=== PATIENT | female | born 1990 | race Caucasian/White ===

== ENCOUNTER 2016-07-30 09:14 | Emergency (ER) | payer OTHER ==
[2016-07-30 09:19] VITALS: TEMP 98.3; BMI 24.4
--- NOTE | 2016-07-30 09:31 | PDOC ---
History of Present Illness - General History Source: Patient Exam Limitations: No Limitations - History of Present Illness Initial Comments: 07/30/16 09:41 The patient is a 26-year-old woman A, currently approximately 7 weeks ), with a past medical history of asthma who presents to the emergency department via walk-in for further evaluation of vaginal spotting for the past week. She states that for the past week, she has been noting some mild vaginal spotting when wiping with associated abdominal cramping and chills. She states that she has been using panty liners and does not soak them. This morning, her abdominal cramping worsened and she noted thick blood and a small clot. She denies history of STDs. She states that her PAP smears have always been normal. Her last menstrual period was on 06/06. She expresses concern as she has had a lot of stress at work, and wonders if her stress might have caused her to bleed. She denies fever, generalized weakness. She denies cough, shortness of breath. She denies any urinary complaints. Allergies: No Known Drug Allergies Past Surgical History: None reported Social History: No tobacco, ETOH and recreational drug use. Pathology Manager: N/A <Natalie Ingram - Last Filed: 07/30/16 12:58> <Fortino Gtz - Last Filed: 07/30/16 13:35> - General Chief Complaint: Vaginal Sxs Stated Complaint: VAGINAL BLEEDING Time Seen by Provider: 07/30/16 09:26 Past History <Natalie Ingram - Last Filed: 07/30/16 12:58> - Past Medical History Asthma: Yes Cancer: No Cardiac Disorders: No Diabetes: No HTN: No Seizures: No Thyroid Disease: No - Reproductive History (#): 3 Para: 1 Spontaneous : 1 - Psycho/Social/Smoking Cessation Hx Anxiety: No Suicidal Ideation: No Smoking History: Never smoked Have you smoked in the past 12 months: No Hx Alcohol Use: No Drug/Substance Use Hx: No Substance Use Type: None Hx Substance Use Treatment: No <Fortino Gtz - Last Filed: 07/30/16 13:35> - Past Medical History Allergies/Adverse Reactions: Allergies Allergy/AdvReac Type Severity Reaction Status Date / Time No Known Allergies Allergy Verified 07/30/16 09:21 Review of Systems - Review of Systems Constitutional: Yes: Chills. No: Fever Respiratory: No: Cough, Shortness of Breath Cardiac (ROS): No: Chest Pain ABD/GI: Yes: Nausea. No: Constipated, Diarrhea : Yes: See HPI. No: Dysuria, Frequency All Other Systems: Reviewed and Negative <Fortino Gtz - Last Filed: 07/30/16 13:35> *Physical Exam - Vital Signs Last Vital Signs Temp Pulse Resp BP Pulse Ox 98.3 F 89 18 99/58 100 07/30/16 09:16 07/30/16 09:16 07/30/16 09:16 07/30/16 09:16 07/30/16 09:16 - Physical Exam Comments: 07/30/16 09:40 GENERAL: The patient is awake, alert, and fully oriented, in no acute distress. HEAD: Normal with no signs of trauma. EYES: Pupils equal, round and reactive to light, extraocular movements intact, sclera anicteric, conjunctiva clear with no pallor. ENT: Ears normal, nares patent, oropharynx clear without exudates. Moist mucous membranes. NECK: Normal range of motion, supple without lymphadenopathy, JVD, or masses. LUNGS: Breath sounds equal, clear to auscultation bilaterally. No wheeze/ crackles. HEART: Regular rate and rhythm, normal S1 and S2 without murmur or rub. ABDOMEN: Soft. There is some suprapubic discomfort without focal guarding or rebound. Nondistended. BS wnl. No palpable masses. No hepatosplenomegaly. EXTREMITIES: Normal range of motion, no edema. No clubbing or cyanosis. No cords, erythema, or tenderness. NEUROLOGICAL: Cranial nerves II through XII grossly intact. Normal speech, normal gait. PSYCH: Normal mood, normal affect. SKIN: Warm, Dry, normal turgor, no rashes or lesions noted. PELVIC: Os is close. Very scant fluid in the vault. <Natalie Ingram - Last Filed: 07/30/16 12:58> - Vital Signs Last Vital Signs Temp Pulse Resp BP Pulse Ox 98.3 F 89 18 99/58 100 07/30/16 09:16 07/30/16 09:16 07/30/16 09:16 07/30/16 09:16 07/30/16 09:16 <Fortino Gtz - Last Filed: 07/30/16 13:35> ED Treatment Course - LABORATORY CBC & Chemistry Diagram: 07/30/16 09:30 - RADIOLOGY Radiograph Interpretation: 07/30/16 12:58 EXAM: US/TRANSVAGINAL US PREG US/PELVIC / BLADDER US P IMPRESSION: Ultrasound of the pelvis is performed with transabdominal and transvaginal technique including pelvic duplex: Transabdominal exam: The uterus measures 9.6 x 6.4 x 7.3 cm. Transvaginal exam: There is a single live intrauterine gestation with crown-rump length measurement consistent with 6 week 1 day gestation. cardiac activity is detected at 105 bpm. Yolk sac is identified. There is no significant free fluid in the cul-de-sac. The right ovary measures 2.9 x 1.8 x 1.9 cm and the left ovary measures 2.9 x 1.9 x 1.9 cm. Pelvic duplex: Normal arterial flow seen to the ovaries bilaterally. <Natalie Ingram - Last Filed: 07/30/16 12:58> - LABORATORY CBC & Chemistry Diagram: 07/30/16 09:30 - RADIOLOGY Radiology Studies Ordered: Category Date Time Status TRANSVAGINAL US PREG [US] Stat Ultrasound 07/30/16 09:31 Ordered <Fortino Gtz - Last Filed: 07/30/16 13:35> Medical Decision Making - Medical Decision Making 07/30/16 09:51 A portion of this note was documented by scribe services under my direction. I have reviewed the details of the note, within reason, and agree with the documentation with the following case summary and management plan written by me. 26-year-old female LMP 3/3 presents with light vaginal spotting and mild cramping for one week, increased today. No passage of large tissue or clot, no urinary complaints, no infectious complaints. No history of STI or HAT TRIMMER procedures, had 2 previously uncomplicated pregnancies with vaginal deliveries. Vital signs normal. Exam as noted with benign abdomen, closed os, scant blood in vault First trimester bleeding in a healthy 26-year-old female, threatened miscarriage versus rule out ectopic. Labs, UA Type and screen Transvaginal ultrasound Reassess 07/30/16 13:08 Labs are within normal limits, hCG 67,000, ultrasound confirms single live IUP with heart rate of 105. Rh+. No further bleeding, but complaining of mild persistent headache despite Tylenol and IV fluids. Will trial Reglan, then discharge. She has follow-up with an OB that takes her insurance <Fortino Gtz - Last Filed: 07/30/16 13:35> *DC/Admit/Observation/Transfer - Attestations Scribe Attestion: 07/30/16 09:40 Documentation prepared by Natalie Ingram, acting as medical chemist for Fortino Gtz MD. <Natalie Ingram - Last Filed: 07/30/16 12:58> <Fortino Gtz - Last Filed: 07/30/16 13:35> Diagnosis at time of Disposition: Vaginal bleeding in Qualifiers: Trimester: first trimester Qualified Code(s): O46.91 - Antepartum hemorrhage, unspecified, first trimester - Discharge Dispostion Disposition: HOME Condition at time of disposition: Stable - Referrals Referrals: Helen Hill MD [Primary Care Provider] - - Patient Instructions Printed Discharge Instructions: DI for Threatened Additional Instructions: Activity as tolerated. Stay hydrated. Tylenol 1000 mg every 8 hours as needed for pain. Blood tests and an ultrasound confirm a live in the uterus. Monitor the bleeding, it may persist or get adjunct faculty for medical terminology, but should not get significantly heavier. You should follow up with your primary doctor and [facility] as soon as possible regarding today's emergency department visit. Return to the emergency department for any new or concerning symptoms, particularly persistent or worsening bleeding, worsening cramps, fevers or chills or abdominal pain.
[2016-07-30] MEDS ORDERED: ACETAMINOPHEN 500 MG TABLET (FP) PO ONE (09:43)
[2016-07-30] MEDS ORDERED: ACETAMINOPHEN 325 MG TABLET (FP) ONE (09:44)
[2016-07-30 10:06] LABS: BASOPHIL 0.4 % (0-2.0); EOSINOPHIL 0.8 % (0-4.5); MCH 30.9 pg (25.7-33.7); MCHC 33.3 g/dl (32.0-36.0); MEAN CELL VOLUME 92.9 fl (80-96); MEAN PLT VOLUME 8.3 fl (7.5-11.1); NEUTROPHILS 73.2 % (42.8-82.8); PLATELET COUNT 243 K/MM3 (134-434); RDW 13.4 % (11.6-15.6); WHITE BLOOD COUNT 7.5 K/mm3 (4.0-10.0)
[2016-07-30 10:26] LABS: INR 1.06 (0.82-1.09); PROTHROMBIN TIME (PATIENT) 11.7 SEC (9.98-11.88)
[2016-07-30 10:46] LABS: URINE APPEARANCE CLEAR; URINE BILIRUBIN NEGATIVE (NEGATIVE); URINE COLOR YELLOW; URINE GLUCOSE (UA) NEGATIVE (NEGATIVE); URINE KETONE NEGATIVE (NEGATIVE); URINE LEUK ESTERASE NEGATIVE (NEGATIVE); URINE NITRITE NEGATIVE (NEGATIVE); URINE PROTEIN NEGATIVE (NEGATIVE); URINE UROBILINOGEN NEGATIVE E.U./dl (0.2-1.0)
[2016-07-30 10:47] LABS: URINE BLOOD 1+ (NEGATIVE)
[2016-07-30 11:07] LABS: URINE MUCUS RARE; URINE WBC <1 /hpf (3-5)
[2016-07-30] MEDS ORDERED: SODIUM CHLORIDE 1,000 ML IV ONE (11:26)
[2016-07-30] MEDS ORDERED: METOCLOPRAMIDE HCL INJECTION 10 MG/2 ML VIAL IVPB ONE (13:13)
[2016-07-30] MEDS ORDERED: METOCLOPRAMIDE HCL INJECTION 10 MG/2 ML VIAL ONE (13:22)
[2016-07-30 14:10] VITALS: BP 122/57; PULSE 85
== END 2016-07-30 14:08 | disposition home or self-care (01) ==
LOC: JER 09:14
PROC: 3E033GC Introduction of Other Therapeutic Substance into Peripheral Vein, Percutaneous Approach (ICD-10-PCS; principal; 2016-07-30)
PROC: 3E0337Z Introduction of Electrolytic and Water Balance Substance into Peripheral Vein, Percutaneous Approach (ICD-10-PCS; 2016-07-30)
DX: O26.891 Other specified pregnancy related conditions, first trimester (principal); O46.91 Antepartum hemorrhage, unspecified, first trimester; Z3A.01 Less than 8 weeks gestation of pregnancy; J45.909 Unspecified asthma, uncomplicated
CPT/HCPCS: 36415; 76817-TC; 76856-TC; 81003; 81015; 84702; 84703; 85025; 85610; 86850; 86900; 86901; 96361; 96374; 99283-25

== ENCOUNTER 2017-02-16 09:22 | Emergency (ER) | payer OTHER ==
[2017-02-16 09:29] VITALS: BP 110/69; PULSE 81; TEMP 99; BMI 23.1
--- NOTE | 2017-02-16 10:27 | PDOC ---
Attending Attestation - Resident Resident Name: Azael Mota - HPI HPI: 02/16/17 10:39 Pt presents to the ED requesting refill of her albuterol prescription. States that she had an asthma attack last night that resolved after home albuterol, but that she is now out of her home MDI. Denies current complaints. - Physicial Exam PE: 02/16/17 10:40 Agree with resident exam. Lungs are clear, with good air entry. Patient is speaking in complete sentences without respiratory distress. REfused peak flow. - Medical Decision Making 02/16/17 10:41 Patient presents to the ED requesting refill of her albuterol MDI. Denies current complaints. Will discharge home with refill of MDI and referral to primary care.
--- NOTE | 2017-02-16 10:37 | PDOC ---
History of Present Illness - General Chief Complaint: Respiratory Stated Complaint: "I HAVE BEEN WHEEZING SINCE LAST NIGHT" Time Seen by Provider: 02/16/17 10:10 Past History - Past Medical History Allergies/Adverse Reactions: Allergies Allergy/AdvReac Type Severity Reaction Status Date / Time latex Allergy Rash Verified 02/16/17 09:24 Home Medications: Ambulatory Orders Albuterol 0.083% Nebulizer Chloe [Ventolin 0.083%] 1 neb NEB QID PRN 02/16/17 Albuterol Sulfate Inhaler - [Ventolin HFA Inhaler -] 1 puff IH QID PRN #1 inhaler 02/16/17 Albuterol Sulfate Inhaler - [Ventolin Hfa Inhaler -] 1 - 2 inh PO QID PRN Asthma: Yes Cancer: No Cardiac Disorders: No COPD: No Diabetes: No HTN: No Seizures: No Thyroid Disease: No - Reproductive History (#): 3 Para: 1 Spontaneous : 1 - Suicide/Smoking/Psychosocial Hx Smoking History: Never smoked Have you smoked in the past 12 months: No Information on smoking cessation initiated: No Hx Alcohol Use: (occasional) Drug/Substance Use Hx: No Substance Use Type: None Hx Substance Use Treatment: No *Physical Exam - Vital Signs Last Vital Signs Temp Pulse Resp BP Pulse Ox 99 F 81 18 110/69 100 02/16/17 09:22 02/16/17 09:22 02/16/17 09:22 02/16/17 09:22 02/16/17 09:22 *DC/Admit/Observation/Transfer Diagnosis at time of Disposition: Asthma attack Qualifiers: Asthma severity: mild Asthma persistence: intermittent Qualified Code(s): J45.21 - Mild intermittent asthma with (acute) exacerbation - Discharge Dispostion Disposition: HOME Condition at time of disposition: Stable Admit: No - Prescriptions Prescriptions: Albuterol Sulfate Inhaler - [Ventolin HFA Inhaler -] 1 puff IH QID PRN #1 inhaler PRN Reason: Asthma - Referrals - Patient Instructions Printed Discharge Instructions: DI for Asthma -- Adult Additional Instructions: Please return to the ED if you have any new or worsening symtpoms or concerns. Please take albuterol inhaler as needed and follow up with your primary care physician as needed. - Post Discharge Activity Forms/Work/School Notes: Back to Work - Attestations Physician Attestion: 02/16/17 10:36 I attest to the information provided in this note.
== END 2017-02-16 10:45 | disposition home or self-care (01) ==
LOC: FER 09:22
DX: J45.21 Mild intermittent asthma with (acute) exacerbation (principal)
CPT/HCPCS: 99283-25

== ENCOUNTER 2017-04-28 10:15 | Emergency (ER) | payer OTHER ==
[2017-04-28 10:24] VITALS: BP 104/68; PULSE 98; TEMP 98.9; BMI 23.6
--- NOTE | 2017-04-28 10:41 | PDOC ---
History of Present Illness <Fortino Gtz - Last Filed: 04/28/17 10:56> - General History Source: Patient Exam Limitations: No Limitations - History of Present Illness Initial Comments: 04/28/17 10:35 The patient is a 27F with a PMH of asthma who presents to the ER with complaints of flu-like symptoms. The patient has had fevers, chills, sore throat , cough, headache, and myalgias for 2 days. She says no one else around her has been sick but she works at [employer] and may have been exposed to people with the flu. She denies any symptoms of asthma, dysuria, abdominal pain, CP. <Ivan Hou - Last Filed: 04/28/17 11:29> - General Chief Complaint: Respiratory Stated Complaint: COUGH & COLD SX Time Seen by Provider: 04/28/17 10:23 Past History <Fortino Gtz - Last Filed: 04/28/17 10:56> - Past Medical History Asthma: Yes Cancer: No Cardiac Disorders: No COPD: No Diabetes: No HTN: No Seizures: No Thyroid Disease: No - Reproductive History (#): 3 Para: 1 Spontaneous : 1 - Suicide/Smoking/Psychosocial Hx Smoking History: Never smoked Have you smoked in the past 12 months: No Hx Alcohol Use: (social) Drug/Substance Use Hx: No Substance Use Type: None Hx Substance Use Treatment: No <Ivan Hou - Last Filed: 04/28/17 11:29> - Past Medical History Allergies/Adverse Reactions: Allergies Allergy/AdvReac Type Severity Reaction Status Date / Time latex Allergy Rash Verified 04/28/17 10:21 Home Medications: Ambulatory Orders Albuterol Sulfate Inhaler - [Ventolin HFA Inhaler -] 1 puff IH QID PRN #1 inhaler 02/16/17 Oseltamivir Phosphate [Tamiflu -] 75 mg PO BID #10 capsule 04/28/17 Review of Systems - Review of Systems Able to Perform ROS?: Yes Comments:: 04/28/17 10:39 GENERAL/CONSTITUTIONAL: Positive for fever or chills. No weakness. HEAD, EYES, EARS, NOSE AND THROAT: No change in vision. No ear pain or discharge. No sore throat. CARDIOVASCULAR: No chest pain, palpitations, or lightheadedness. RESPIRATORY: Positive for cough. No wheezing, shortness of breath, or hemoptysis. GASTROINTESTINAL: No nausea, vomiting, diarrhea, constipation, or abdominal pain. GENITOURINARY: No dysuria, frequency, hematuria, or change in urination. MUSCULOSKELETAL: Positive for myalgias. No neck or back pain. SKIN: No rash or lesions. NEUROLOGIC: Positive for headache. No numbness, tingling, weakness, loss of consciousness, or change in strength/sensation. ENDOCRINE: No increased thirst. No abnormal weight change. HEMATOLOGIC/LYMPHATIC: No anemia, easy bleeding, or history of blood clots. ALLERGIC/IMMUNOLOGIC: No hives or skin allergy. Is the patient limited Gambian proficient: No <Ivan Hou - Last Filed: 04/28/17 11:29> *Physical Exam - Vital Signs Last Vital Signs Temp Pulse Resp BP Pulse Ox 98.9 F 98 H 20 104/68 98 04/28/17 10:15 04/28/17 10:15 04/28/17 10:15 04/28/17 10:15 04/28/17 10:15 <Fortino Gtz - Last Filed: 04/28/17 10:56> - Vital Signs Last Vital Signs Temp Pulse Resp BP Pulse Ox 98.9 F 98 H 20 104/68 98 04/28/17 10:15 04/28/17 10:15 04/28/17 10:15 04/28/17 10:15 04/28/17 10:15 - Physical Exam Comments: 04/28/17 11:28 GENERAL: Well developed, well nourished. Awake and alert. No acute distress. HEENT: Normocephalic, atraumatic. Hearing grossly normal. Moist mucous membranes. PERRLA, EOMI. No conjunctival pallor. Sclera are non-icteric. Tonsillar swelling, no exudates, nonerythematous. NECK: Supple. Full ROM. No JVD. No lymphadenopathy. CARDIOVASCULAR: Regular rate and rhythm. No murmurs, rubs, or gallops. PULMONARY: No evidence of respiratory distress. Lungs clear to auscultation bilaterally. No wheezing, rales or rhonchi. ABDOMINAL: Soft. Non-tender. Non-distended. No rebound or guarding. GENITOURINARY: No CVA tenderness bilaterally. MUSCULOSKELETAL: Normal range of motion at all joints. No bony deformities or tenderness. EXTREMITIES: No cyanosis. No clubbing. No edema. No calf tenderness. SKIN: Warm and dry. Normal capillary refill. No rashes. No jaundice. NEUROLOGICAL: Alert, awake, appropriate. Cranial nerves 2-12 intact. Normal speech. Gait is normal without ataxia. PSYCHIATRIC: Cooperative. Good eye contact. Appropriate mood and affect. <Ivan Hou - Last Filed: 04/28/17 11:29> Medical Decision Making - Medical Decision Making 04/28/17 10:44 The patient is a 27F with a PMH of asthma who is presenting with flu-like symptoms x 2 days. Will check u-preg and send tamiflu to her pharmacy. <Ivan Hou - Last Filed: 04/28/17 11:29> *DC/Admit/Observation/Transfer <Fortino Gtz - Last Filed: 04/28/17 10:56> - Discharge Dispostion Admit: No <Ivan Hou - Last Filed: 04/28/17 11:29> Diagnosis at time of Disposition: Influenza - Discharge Dispostion Disposition: HOME Condition at time of disposition: Stable - Prescriptions Prescriptions: Oseltamivir Phosphate [Tamiflu -] 75 mg PO BID #10 capsule - Patient Instructions Printed Discharge Instructions: Influenza (Alternative Therapy) Additional Instructions: Please return to the ER if symptoms persist, worsen, or new symptoms arise, especially increased shortness of breath or wheezing. Your symptoms are consistent with influenza. Take Tamiflu as prescribed to help reduce the symptoms. Take tylenol and/or motrin as needed for fever/aches, continue to use your inhaler as needed for cough/wheezing. Please follow up with your primary care physician in 2-3 days. Please return to the ER if you have any signs or symptoms of chest pain, shortness of breath, uncontrollable fever, chills, nausea, vomiting, numbness, tingling, or weakness in any part of your body, changes in vision, or slurred speech. Print Language: LIBERIAN - Post Discharge Activity Forms/Work/School Notes: Back to Work
--- NOTE | 2017-04-28 11:01 | PDOC ---
Attending Attestation - Resident Resident Name: IsaideeapeddieIvan - ED Attending Attestation I have performed the following: I have examined & evaluated the patient, The case was reviewed & discussed with the resident, I agree w/resident's findings & plan, Exceptions are as noted - HPI HPI: 04/28/17 10:58 27-year-old female with history of mild intermittent asthma presents with URI symptoms for 2 days, fever and chills and myalgia. Used inhaler several times for wheezing movement, no persistent shortness of breath or chest congestion. 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 No other travel. - Physicial Exam PE: 04/28/17 10:58 afebrile, O2 sat normal. Well-appearing, ambulating independently and speaking full sentences, smiling and joking with staff No stridor, oropharynx clear Lungs are clear without wheezing or focally decreased breath sounds Heart is regular, abdomen benign - Medical Decision Making 04/28/17 10:59 Patient seen and evaluated with the resident. I agree with the overall evaluation, assessment, and management with the following summary of visit: Healthy 27-year-old female with URI symptoms and fevers for 2 days, works in healthcare facility. Clinically consistent with influenza given the current propellants, will treat empirically with Tamiflu. No persistent asthma exacerbation and her respiratory status is normal, return precautions discussed. Urine sent No indication for emergent imaging Tamiflu prescription, PMD follow-up
== END 2017-04-28 11:00 | disposition home or self-care (01) ==
LOC: FER 10:15
DX: J11.1 Influenza due to unidentified influenza virus with other respiratory manifestations (principal); J45.909 Unspecified asthma, uncomplicated
CPT/HCPCS: 84703; 99282-25

== ENCOUNTER 2018-02-27 10:37 | Emergency (ER) | payer OTHER ==
--- NOTE | 2018-02-27 10:51 | PDOC ---
History of Present Illness - General Stated Complaint: FLU Time Seen by Provider: 02/27/18 10:50 History Source: Patient - History of Present Illness Initial Comments: 02/27/18 11:49 The patient is a 27 year old female 34 weeks pregnent with no significant PMH that ptesented today complaining of flu like symptoms ( muscle pain, sore throat , cough, fever) that started 4 days ago. She visited urgent care clinic yesterday and was told that she is positive for influenza. Her OBGYN was consulted and no Tamiflu was recommended. She was given cough syrup and Tylenol. She is complaining of fatigue, denies eating or drinking since yesterday. She also hasn't noticed movements today. Severity: moderate Past History - Past Medical History Allergies/Adverse Reactions: Allergies Allergy/AdvReac Type Severity Reaction Status Date / Time latex Allergy Rash Verified 02/27/18 11:01 Home Medications: Ambulatory Orders Multivitamins [Tab-A-Vit -] 1 tab PO DAILY 02/27/18 Asthma: Yes Cancer: No Cardiac Disorders: No COPD: No Diabetes: No HTN: No Seizures: No Thyroid Disease: No - Reproductive History (#): 3 Para: 1 Spontaneous : 1 - Suicide/Smoking/Psychosocial Hx Smoking History: Never smoked Have you smoked in the past 12 months: No Hx Alcohol Use: (social) Drug/Substance Use Hx: No Substance Use Type: None Hx Substance Use Treatment: No Review of Systems - Review of Systems Able to Perform ROS?: Yes Is the patient limited Ecuadorean proficient: Yes Constitutional: Yes: See HPI HEENTM: Yes: Symptoms Reported, See HPI Respiratory: Yes: Symptoms reported, Cough *Physical Exam - Physical Exam General Appearance: Yes: Nourished, Appropriately Dressed HEENT: positive: EOMI (rhales on right side), LORIE Respiratory/Chest: positive: Rales, Rhonchi Cardiovascular: positive: Regular Rhythm, Regular Rate, S1, S2 Gastrointestinal/Abdominal: positive: Normal Bowel Sounds, Other (gravid uterus) Neurologic: positive: Fully Oriented, Alert Medical Decision Making - Medical Decision Making 02/27/18 11:59 The patient had 2 L of NS ordered, Tylenol 1g IV. L&D notified about the patient. *DC/Admit/Observation/Transfer Diagnosis at time of Disposition: , Influenza - Discharge Dispostion Disposition: HOME Condition at time of disposition: Good Decision to Admit order: No - Referrals - Patient Instructions Additional Instructions: You are being discharged from ED. Please go to L&D as soon as possible for evaluation. Take Tylenol 650 mg every 4 hours and come back to Emergency Room if any of your symptoms worsen. Please continue to drink plenty of fluids, - Post Discharge Activity
[2018-02-27] MEDS ORDERED: ACETAMINOPHEN INJECTION 100 ML IVPB ONE (11:36)
--- NOTE | 2018-02-27 11:43 | PDOC ---
Attending Attestation - Resident Resident Name: Yarelis Alatorre - ED Attending Attestation I have performed the following: I have examined & evaluated the patient, The case was reviewed & discussed with the resident, I agree w/resident's findings & plan, Exceptions are as noted - HPI HPI: 02/27/18 11:39 27 year old female c/ hx of ~34 wks , no pmh p/w flu-like symptoms. Pt was having ~5 days of flu-like symptoms. Went to urgent care and diagnosed with influenza with swab. however, given outside window, both urgent care physician and pt's OB, Dr. Peterson (as per pt) stated pt should not start tamiflu. Pt continues to have cough, body aches, chills and flu like symptoms. Today, noted that she was still feeling symptoms and felt the baby kick less, so came into ER. No abdominal pain, dysuria, or vaginal bleeding. - Physicial Exam PE: 02/27/18 11:42 GENERAL: Awake, alert, and fully oriented, in no acute distress HEAD: No signs of trauma EYES: EOMI, sclera anicteric, conjunctiva clear ENT: Auricles normal inspection, hearing grossly normal, nares patent NECK: Normal ROM, supple LUNGS: Breath sounds equal, clear to auscultation bilaterally. No wheezes, and no crackles HEART: Regular rate and rhythm, normal S1 and S2, no murmurs, rubs or gallops ABDOMEN: Soft, nontender, No guarding, no rebound. No masses EXTREMITIES: Normal range of motion, no edema. No clubbing or cyanosis. No cords, erythema, or tenderness NEUROLOGICAL: Cranial nerves II through XII grossly intact. Normal speech, SKIN: Warm, Dry, normal turgor, no rashes or lesions noted. - Medical Decision Making 02/27/18 11:42 Vital Signs Temp Pulse Resp BP Pulse Ox 97.9 F 93 H 16 104/64 98 02/27/18 10:45 02/27/18 10:45 02/27/18 10:45 02/27/18 10:45 02/27/18 10:45 27 year old female presents with influenza. Pt concerned for fetus. Supportive care, tylenol and IVF. Dr. Yi had spoken to L&D. The patient can be sent to L&D for heart monitoring and ultrasound. Pt agrees with plan.
[2018-02-27] MEDS ORDERED: SODIUM CHLORIDE 0.9% 500 ML INFUS.BAG IV ONE (11:45)
[2018-02-27] MEDS ORDERED: ACETAMINOPHEN 1000 MG/100 ML VIAL (NON FORMULARY) IVPB ONE (11:49)
[2018-02-27 13:38] VITALS: BP 119/73; PULSE 88; TEMP 98.1
== END 2018-02-27 14:35 | disposition home or self-care (01) ==
LOC: JER 10:37
PROC: 3E033NZ Introduction of Analgesics, Hypnotics, Sedatives into Peripheral Vein, Percutaneous Approach (ICD-10-PCS; principal; 2018-02-27)
DX: O26.893 Other specified pregnancy related conditions, third trimester (principal); O98.513 Other viral diseases complicating pregnancy, third trimester; B33.8 Other specified viral diseases; J10.1 Influenza due to other identified influenza virus with other respiratory manifestations; Z3A.34 34 weeks gestation of pregnancy
CPT/HCPCS: 96374; 99282-25; J0131

== ENCOUNTER 2018-05-19 17:42 | Emergency (ER) | payer OTHER ==
--- NOTE | 2018-05-19 17:49 | PDOC ---
History of Present Illness - General Chief Complaint: Laceration Stated Complaint: LEFT HAND LACERATION Time Seen by Provider: 05/19/18 17:48 Past History - Past Medical History Allergies/Adverse Reactions: Allergies Allergy/AdvReac Type Severity Reaction Status Date / Time latex Allergy Rash Verified 05/19/18 17:43 Home Medications: Ambulatory Orders Multivitamins [Tab-A-Vit -] 1 tab PO DAILY 02/27/18 Asthma: Yes Cancer: No Cardiac Disorders: No COPD: No CHF: No Diabetes: No HTN: No Seizures: No Thyroid Disease: No - Reproductive History (#): 3 Para: 1 Spontaneous : 1 - Suicide/Smoking/Psychosocial Hx Smoking History: Never smoked Have you smoked in the past 12 months: No Hx Alcohol Use: (social) Drug/Substance Use Hx: No Substance Use Type: None Hx Substance Use Treatment: No
--- NOTE | 2018-05-19 17:51 | PDOC ---
Attending Attestation - Resident Resident Name: Rubi Tyler - ED Attending Attestation I have performed the following: I have examined & evaluated the patient, The case was reviewed & discussed with the resident, I agree w/resident's findings & plan, Exceptions are as noted - HPI HPI: 05/19/18 18:01 Laceration at the base of the left thumb. Appears superficial. Distal sensation is intact. Tendons full function against resistance flexion and extension of the IPJ, MCP J. Apposition is intact and strong. Capillary refill intact and prompt. - Physicial Exam PE: 05/19/18 18:02 Physical exam: Alert and oriented well-developed well-nourished no acute distress cheerful and cooperative Afebrile, vital signs normal Injury confined to the left thumb. 1 cm superficial laceration involving the epidermis and dermis only. No deep structures involved. Tendons intact. Sensation intact to the fingertip. - Medical Decision Making 05/19/18 18:03 Assessment: Superficial laceration of the thumb Plan: Digital block. Clean and irrigate. Further explore. If superficial, close with interrupted 4-0 nylon, immobilize, with wound care follow-up. 05/19/18 18:35 Repair of the skin was performed by the resident, Dr. Tyler. Exploration revealed that the cut was superficial and there were no deep structures involved. Skin edges were nicely approximated with 4-0 nylon. Wound care instructions and follow-up.
[2018-05-19 17:53] VITALS: BP 121/71; PULSE 91; TEMP 98.3; BMI 28.3
--- NOTE | 2018-05-19 17:57 | PDOC ---
History of Present Illness - General Chief Complaint: Laceration Stated Complaint: LEFT HAND LACERATION Time Seen by Provider: 05/19/18 17:48 History Source: Patient Exam Limitations: No Limitations - History of Present Illness Initial Comments: 05/19/18 17:56 28 year old female with no pertinent PMH presented to ED for laceration to left thumb after cutting herself on a mirror accidentally. Pt reported last tetanus x2 years ago. Pt denied numbness, tingling, weakness. Pt stated the mirror did not break and she does not believe any glass is in the wound. Past History - Past Medical History Allergies/Adverse Reactions: Allergies Allergy/AdvReac Type Severity Reaction Status Date / Time latex Allergy Rash Verified 05/19/18 17:43 Home Medications: Ambulatory Orders Multivitamins [Tab-A-Vit -] 1 tab PO DAILY 02/27/18 Asthma: Yes Cancer: No Cardiac Disorders: No COPD: No CHF: No Diabetes: No HTN: No Seizures: No Thyroid Disease: No - Reproductive History (#): 3 Para: 1 Spontaneous : 1 - Immunization History Immunization Up to Date: Yes - Suicide/Smoking/Psychosocial Hx Smoking History: Never smoked Have you smoked in the past 12 months: No Information on smoking cessation initiated: No Hx Alcohol Use: No Drug/Substance Use Hx: No Substance Use Type: None Hx Substance Use Treatment: No Review of Systems - Review of Systems Able to Perform ROS?: Yes Comments:: 05/19/18 17:56 General: denied fever, chills, night sweats, generalized weakness. HEENT: denied sore throat, rhinorrhea, ear pain. Heart: denied chest pain, palpitations, syncope, lower extremity swelling, diaphoresis. Respiratory: denied shortness of breath, cough, sputum production, hemoptysis. Abdomen: denied abdominal pain, nausea, vomiting, diarrhea, constipation, blood in stool. : denied dysuria, increased urinary frequency, hematuria, urinary incontinence , flank pain. Back: denied back pain. Musculoskeletal: denied joint pain, muscle pain, joint swelling. Neurological: denied headache, dizziness, numbness, tingling, weakness. Skin: admitted to laceration. denied rash, abrasion. *Physical Exam - Vital Signs Last Vital Signs Temp Pulse Resp BP Pulse Ox 98.3 F 91 H 20 121/71 100 05/19/18 17:43 05/19/18 17:43 05/19/18 17:43 05/19/18 17:43 05/19/18 17:43 - Physical Exam Comments: 05/19/18 17:57 Constitutional: Well-nourished, Well-developed, appearing stated age. HEENT: head is normocephalic, atraumatic. EOMI. PERRLA. Neck: supple. Full ROM. Heart: regular rhythm. no murmurs, rubs or gallops. Lungs: clear to auscultation bilaterally. no crackles, rhonchi or wheezing. no stridor. Abdomen: soft, nontender. normal bowel sounds. no rebound, guarding, masses. Extremities: full ROM left thumb. left thumb is neurovascularly intact. Peripheral pulses intact. capillary refill intact and strong. Neurological: CN 2-12 grossly intact. Moves all four extremities. Psych: awake, alert, oriented x3. Follows commands. Answers questions appropriately. Skin: 3 cm simple linear laceration to left palmar area just proximal to the thumb. Moderate Sedation - Procedure Monitoring Vital Signs: Procedure Monitoring Vital Signs Temperature 98.3 F 05/19/18 17:43 Pulse Rate 91 H 05/19/18 17:43 Respiratory Rate 20 05/19/18 17:43 Blood Pressure 121/71 05/19/18 17:43 O2 Sat by Pulse Oximetry (%) 100 05/19/18 17:43 Procedures - Laceration/Wound Repair Hand Wound Length: 2.6 to 5.0 cm Wound Explored: clean, no foreign body present Wound's Depth, Shape: superficial Irrigated w/ Saline: Yes Betadine Prep: Yes Anesthesia: 1% Lidocaine Amount of Anesthetic (ccs): 3 Wound Debrided: minimal Wound Repaired With: Sutures Suture Size/Type: 4:0 Number of Sutures: 3 Sterile Dressing Applied: Yes Medical Decision Making - Medical Decision Making 05/19/18 18:34 28 year old female presented to ED for laceration to hand after accidentally cutting herself on a mirror. Last tetanus x2 years ago. Initial Vital Signs Temp Pulse Resp BP Pulse Ox 98.3 F 91 H 20 121/71 100 05/19/18 17:43 05/19/18 17:43 05/19/18 17:43 05/19/18 17:43 05/19/18 17:43 Afebrile. No tachycardia. No tachypnea. No hypotension. No hypoxia on room air. The wound was irrigated with normal saline (1000 cc) under pressure, anesthetized with 1% lidocaine and repaired with 3 sutures. See above procedure note. Pt tolerated the procedure well. Pt continued to be neurovascularly intact. The wound was covered with bacitracin and gauze. Pt informed of return precautions and wound care. Pt informed to follow up in 7-10 days. Pt discharged. *DC/Admit/Observation/Transfer Diagnosis at time of Disposition: Laceration - Discharge Dispostion Disposition: HOME Condition at time of disposition: Improved Decision to Admit order: No - Referrals - Patient Instructions Printed Discharge Instructions: DI for Laceration Repair Additional Instructions: You were seen today for a laceration repair. You were given stitches that do not dissolve. Keep the wound clean and dry for 24-48 hours, do not remove the dressing, use gloves when washing dishes and place a garbage bag over your hand when showering. After that period change the dressing daily, applying bacitracin or neosporin and cover with gauze. When in the shower let the water run over the wound, do not scrub. Take Tylenol 650 mg every 8 hours as needed for pain. Take Ibuprofen 600 mg every 8 hours as needed for pain. You can take both Tylenol and Ibuprofen, they are not the same drug. Return to the Emergency Department in 7-10 days for a wound check and to have the stitches removed. Return sooner if you develop redness around the area, drainage from the wound, fever, chills, vomiting, weakness, inability to feel or move your finger or any other new, worsening or concerning symptoms. - Post Discharge Activity Forms/Work/School Notes: Back to Work
== END 2018-05-19 18:47 | disposition home or self-care (01) ==
LOC: FER 17:42
PROC: 0HQGXZZ Repair Left Hand Skin, External Approach (ICD-10-PCS; principal; 2018-05-19)
DX: S61.412A Laceration without foreign body of left hand, initial encounter (principal); W25.XXXA Contact with sharp glass, initial encounter; Y93.89 Activity, other specified; Y92.89 Other specified places as the place of occurrence of the external cause
CPT/HCPCS: 99282-25

== ENCOUNTER 2018-11-12 19:43 | Inpatient (IN) | payer OTHER | END 2018-11-18 17:44 | disposition home or self-care (01) | LOC: JER 19:43 → JERBED 11-13 01:07 → J5S 11-15 21:25 → J4W 11-13 15:42 ==

== ENCOUNTER 2019-05-01 12:20 | Emergency (ER) | payer OTHER ==
[2019-05-01 12:28] VITALS: BP 106/67; PULSE 81; TEMP 98.8; BMI 25.4
[2019-05-01] MEDS ORDERED: AZITHROMYCIN 250 MG TABLET PO ONE (13:01)
[2019-05-01] MEDS ORDERED: IBUPROFEN 600 MG TABLET (FP) PO ONE ×2 (13:01→13:06)
--- NOTE | 2019-05-01 13:01 | PDOC ---
History of Present Illness - General Chief Complaint: Respiratory Stated Complaint: FEVER COUGH FOR 3 WEEKS Time Seen by Provider: 05/01/19 12:30 History Source: Patient Exam Limitations: No Limitations - History of Present Illness Initial Comments: 29 yo F presents with cough for the past 3 weeks. She states it started with fever, but the fever has resolved and the cough has persisted. It keeps her up all night. +Body aches. No nausea, vomiting, diarrhea. +Blood-streaked purulent sputum. Past History - Past Medical History Allergies/Adverse Reactions: Allergies Allergy/AdvReac Type Severity Reaction Status Date / Time krueger Allergy Unknown Verified 05/01/19 13:04 nut - unspecified Allergy Unknown Verified 05/01/19 13:04 plum Allergy Unknown Verified 05/01/19 13:04 latex Allergy Rash Verified 05/01/19 13:04 peach Allergy Verified 05/01/19 13:04 nectarine Allergy Unknown Uncoded 05/01/19 12:22 Home Medications: Ambulatory Orders Azithromycin [Zithromax 250mg Tablets -] 250 mg PO UTDICT #6 tab 05/01/19 Guaifenesin AC [Robitussin AC] 5 ml PO Q6H PRN #60 ml MDD 20 mL 05/01/19 Asthma: Yes Cancer: No Cardiac Disorders: No COPD: No CHF: No Diabetes: No HTN: No Seizures: No Thyroid Disease: No - Reproductive History (#): 3 Para: 1 Spontaneous : 1 - Immunization History Immunization Up to Date: Yes - Psycho Social/Smoking Cessation Hx Smoking History: Never smoked Have you smoked in the past 12 months: No Information on smoking cessation initiated: No Hx Alcohol Use: No Drug/Substance Use Hx: No Substance Use Type: None Hx Substance Use Treatment: No Review of Systems - Review of Systems Able to Perform ROS?: Yes Comments:: GENERAL/CONSTITUTIONAL: No fever or chills. No weakness. HEAD, EYES, EARS, NOSE AND THROAT: No change in vision. No ear pain or discharge. No sore throat. CARDIOVASCULAR: No chest pain or shortness of breath. RESPIRATORY: +Cough GASTROINTESTINAL: No nausea, vomiting, diarrhea or constipation. GENITOURINARY: No dysuria, frequency, or change in urination. MUSCULOSKELETAL: No joint or muscle swelling or pain. No neck or back pain. SKIN: No rash. NEUROLOGIC: No headache, vertigo, loss of consciousness, or change in strength/ sensation. ENDOCRINE: No increased thirst. No abnormal weight change. HEMATOLOGIC/LYMPHATIC: No anemia, easy bleeding, or history of blood clots. ALLERGIC/IMMUNOLOGIC: No hives or skin allergy. *Physical Exam - Vital Signs Last Vital Signs Temp Pulse Resp BP Pulse Ox 98.8 F 81 16 106/67 97 05/01/19 12:21 05/01/19 12:21 05/01/19 12:21 05/01/19 12:21 05/01/19 12:21 - Physical Exam GENERAL: Awake, alert, and fully oriented, in no acute distress HEAD: No signs of trauma EYES: PERRLA, EOMI, sclera anicteric, conjunctiva clear ENT: Auricles normal inspection, hearing grossly normal, nares patent, oropharynx clear without exudates. Moist mucosa NECK: Normal ROM, supple, no lymphadenopathy, JVD, or masses LUNGS: Breath sounds equal, clear to auscultation bilaterally. No wheezes, and no crackles HEART: Regular rate and rhythm, normal S1 and S2, no murmurs, rubs or gallops ABDOMEN: Soft, nontender, normoactive bowel sounds. No guarding, no rebound. No masses EXTREMITIES: Normal range of motion, no edema. No clubbing or cyanosis. No cords, erythema, or tenderness NEUROLOGICAL: Cranial nerves II through XII grossly intact. Normal speech, normal gait. Motor and sensation intact SKIN: Warm, dry, normal turgor, no rashes or lesions noted. Medical Decision Making - Medical Decision Making Given the duration of the cough (3 weeks) and that it is producing purulent blood-streaked sputum, will treat for bronchitis with azithro. Stable for [place] home. Discharge - Discharge Information Problems reviewed: Yes Clinical Impression/Diagnosis: Bronchitis Condition: Stable Disposition: HOME - Admission No - Additional Discharge Information Prescriptions: Azithromycin [Zithromax 250mg Tablets -] 250 mg PO UTDICT #6 tab Guaifenesin AC [Robitussin AC] 5 ml PO Q6H PRN #60 ml MDD 20 mL PRN Reason: Cough - Follow up/Referral - Patient Discharge Instructions Patient Printed Discharge Instructions: DI for Acute Bronchitis - Post Discharge Activity
[2019-05-01] MEDS ORDERED: AZITHROMYCIN 250 MG TABLET ONE (13:06)
== END 2019-05-01 13:56 | disposition home or self-care (01) ==
LOC: FER 12:20
DX: J40 Bronchitis, not specified as acute or chronic (principal); Z91.018 Allergy to other foods
CPT/HCPCS: 99282-25

== ENCOUNTER 2020-04-27 13:11 | Emergency (ER) | payer OTHER ==
[2020-04-27 13:33] VITALS: BP 104/67; PULSE 69; TEMP 98.3; BMI 24.9
[2020-04-27] MEDS ORDERED: KETOROLAC TROMETHAMINE 30 MG/1 ML VIAL IVPUSH ONE (14:40)
[2020-04-27] MEDS ORDERED: SODIUM CHLORIDE 1,000 ML IV STA (14:40)
[2020-04-27] MEDS ORDERED: ONDANSETRON 4 MG/2 ML VIAL IVPUSH ONE (14:42)
[2020-04-27 15:49] LABS: BASO % 0.6 % (0-2.0); EOS % 0.1 % (0-4.5); HEMATOCRIT 42.2 % (32.4-45.2); HEMOGLOBIN 13.9 GM/dL (10.7-15.3); MCH 30.7 pg (25.7-33.7); MCHC 33.1 g/dl (32.0-36.0); MEAN CELL VOLUME 92.8 fl (80-96); MEAN PLT VOLUME 8.9 fl (7.5-11.1); NEUT % 80.3 % (42.8-82.8); PLATELET COUNT 309 K/MM3 (134-434); RBC 4.54 M/mm3 (3.60-5.2)
[2020-04-27 15:52] LABS: URINE APPEARANCE CLOUDY; URINE BILIRUBIN NEGATIVE (NEGATIVE); URINE COLOR YELLOW; URINE GLUCOSE (UA) NEGATIVE (NEGATIVE); URINE KETONE NEGATIVE (NEGATIVE); URINE LEUK ESTERASE NEGATIVE (NEGATIVE); URINE NITRITE NEGATIVE (NEGATIVE); URINE PROTEIN NEGATIVE (NEGATIVE); URINE UROBILINOGEN 0.2 mg/dL (0.2-1.0)
[2020-04-27 15:54] LABS: HCG,QUALITATIVE URINE Negative
[2020-04-27 16:09] LABS: POTASSIUM 4.3 mmol/L (3.5-5.1)
[2020-04-27 16:11] LABS: ALBUMIN 4.3 g/dl (3.4-5.0); BLOOD UREA NITROGEN 13.1 mg/dL (7-18); CALCIUM 9.7 mg/dL (8.5-10.1)
[2020-04-27 16:12] LABS: MAGNESIUM 2.1 mg/dL (1.8-2.4)
[2020-04-27 16:15] LABS: CREATININE 0.8 mg/dL (0.55-1.3)
[2020-04-27 16:16] LABS: BILIRUBIN,TOTAL 0.3 mg/dL (0.2-1); TOT PROT 8.1 g/dl (6.4-8.2)
[2020-04-27] MEDS ORDERED: KETOROLAC TROMETHAMINE 30 MG/1 ML VIAL ONE (16:16)
[2020-04-27] MEDS ORDERED: ONDANSETRON 4 MG/2 ML VIAL ONE (16:16)
== END 2020-04-27 17:52 | disposition home or self-care (01) ==
LOC: JER 13:11
PROC: 3E0333Z Introduction of Anti-inflammatory into Peripheral Vein, Percutaneous Approach (ICD-10-PCS; principal; 2020-04-27)
PROC: 3E033GC Introduction of Other Therapeutic Substance into Peripheral Vein, Percutaneous Approach (ICD-10-PCS; 2020-04-27)
PROC: 3E0337Z Introduction of Electrolytic and Water Balance Substance into Peripheral Vein, Percutaneous Approach (ICD-10-PCS; 2020-04-27)
DX: R51.9 Headache, unspecified (principal)
CPT/HCPCS: 36415; 70450-TC; 80053; 81003; 83735; 84703; 85025; 99285-25

== ENCOUNTER 2020-10-29 07:22 | Emergency (ER) | payer OTHER ==
[2020-10-29 07:37] VITALS: TEMP 98.2; BMI 27.4
[2020-10-29 08:13] LABS: BASO % 0.7 % (0-2.0); EOS % 1.6 % (0-4.5); HEMATOCRIT 42.4 % (32.4-45.2); HEMOGLOBIN 14.5 GM/dL (10.7-15.3); LYMPH % 27.6 % (8-40); MCH 32.6 pg (25.7-33.7); MCHC 34.2 g/dl (32.0-36.0); MEAN CELL VOLUME 95.3 fl (80-96); MEAN PLT VOLUME 8.2 fl (7.5-11.1); MONO % 5.7 % (3.8-10.2); NEUT % 64.4 % (42.8-82.8); PLATELET COUNT 241 10^3/uL (134-434); RBC 4.45 M/mm3 (3.60-5.2); RDW 13.9 % (11.6-15.6); WHITE BLOOD COUNT 5.9 K/mm3 (4.0-10.0)
[2020-10-29 08:17] LABS: PH,URINE 6.5 (5.0-8.0); URINE APPEARANCE CLEAR; URINE BILIRUBIN NEGATIVE (NEGATIVE); URINE COLOR YELLOW; URINE GLUCOSE (UA) NEGATIVE (NEGATIVE); URINE KETONE NEGATIVE (NEGATIVE); URINE LEUK ESTERASE NEGATIVE (NEGATIVE); URINE NITRITE NEGATIVE (NEGATIVE); URINE PROTEIN NEGATIVE (NEGATIVE)
[2020-10-29 08:29] LABS: ALBUMIN 3.8 g/dl (3.4-5.0); CALCIUM 8.8 mg/dL (8.5-10.1)
[2020-10-29] MEDS ORDERED: LACTATED RINGERS SOLUTION 1000 ML INFUS.BAG IV ONE (08:29)
[2020-10-29] MEDS ORDERED: ACETAMINOPHEN 325 MG TABLET (FP) PO ONE (08:29)
[2020-10-29 08:30] LABS: BLOOD UREA NITROGEN 12.8 mg/dL (7-18)
[2020-10-29 08:32] LABS: CREATININE 0.8 mg/dL (0.55-1.3)
[2020-10-29 08:34] LABS: BILIRUBIN,TOTAL 0.4 mg/dL (0.2-1); TOT PROT 7.8 g/dl (6.4-8.2)
[2020-10-29] MEDS ORDERED: ACETAMINOPHEN 325 MG TABLET (FP) ONE (08:38)
[2020-10-29] MEDS ORDERED: AZITHROMYCIN 250 MG TABLET PO ONE (09:01)
[2020-10-29] MEDS ORDERED: predniSONE 20 MG TABLET (UD) PO ONE (09:01)
[2020-10-29] MEDS ORDERED: AZITHROMYCIN 250 MG TABLET ONE (09:59)
[2020-10-29] MEDS ORDERED: predniSONE 20 MG TABLET (UD) ONE (09:59)
[2020-10-29 10:08] VITALS: BP 110/72; PULSE 68
== END 2020-10-29 10:07 | disposition home or self-care (01) ==
LOC: JER 07:22
DX: J40 Bronchitis, not specified as acute or chronic (principal); J45.909 Unspecified asthma, uncomplicated
CPT/HCPCS: 36415; 71046-TC-FY; 80053; 81003; 85025; 85379; 87086; 99284-25; C9803; U0003; U0005

== ENCOUNTER 2021-03-27 09:35 | Emergency (ER) | payer OTHER ==
[2021-03-27 09:59] VITALS: BP 110/73; PULSE 78; TEMP 99.4; BMI 25.7
== END 2021-03-27 10:23 | disposition home or self-care (01) ==
LOC: FER 09:35
DX: U07.1 COVID-19 (principal)
CPT/HCPCS: 71046-TC-FY; 87651; 87804; 87807; 99284-25; C9803; U0003; U0005

== ENCOUNTER 2021-05-06 09:30 | Emergency (ER) | payer OTHER ==
[2021-05-06 09:44] VITALS: BP 106/72; PULSE 77; TEMP 99.2; BMI 25.7
[2021-05-06] MEDS ORDERED: LIDOCAINE 5% TOPICAL PATCH TP ONE (10:08)
[2021-05-06] MEDS ORDERED: ACETAMINOPHEN 500 MG TABLET (FP) PO ONE (10:09)
[2021-05-06] MEDS ORDERED: ACETAMINOPHEN 325 MG TABLET (FP) ONE (10:16)
[2021-05-06] MEDS ORDERED: LIDOCAINE 5% TOPICAL PATCH ONE (10:16)
[2021-05-06] MEDS ORDERED: METHOCARBAMOL 500 MG TABLET PO ONE (10:42)
[2021-05-06] MEDS ORDERED: METHOCARBAMOL 500 MG TABLET ONE (10:47)
[2021-05-06] MEDS ORDERED: LIDOCAINE PATCH REMOVAL MC SCH (22:00)
== END 2021-05-06 12:42 | disposition home or self-care (01) ==
LOC: FER 09:30
DX: M25.511 Pain in right shoulder (principal); M25.551 Pain in right hip; M54.6 Pain in thoracic spine; W01.0XXA Fall on same level from slipping, tripping and stumbling without subsequent striking against object, initial encounter
CPT/HCPCS: 70450-TC; 72070-TC-FY; 72100-TC-FY; 72125-TC; 73030-TC-RT-FY; 73523-TC-FY; 81025; 99285-25

== ENCOUNTER 2022-01-17 12:30 | Emergency (ER) | payer OTHER ==
[2022-01-17 12:51] VITALS: BP 103/70; PULSE 72; RESP 16; TEMP 98.2; BMI 25.4
[2022-01-17] MEDS ORDERED: LIDOCAINE VISCOUS 2% ORAL/TOP 15 ML UNIT-DOSE CUP MM ONE (13:33)
[2022-01-17] MEDS ORDERED: LIDOCAINE VISCOUS 2% ORAL/TOP 15 ML UNIT-DOSE CUP ONE (13:39)
[2022-01-17] MEDS ORDERED: ALBUTEROL SO4 2.5/IPRATROPIUM 0.5 INH SOL 3 ML VIAL.NEB. NEB ONE (13:39)
[2022-01-17] MEDS: ALBUTEROL SO4 2.5/IPRATROPIUM 0.5 INH SOL 3 ML VIAL.NEB. NEB SCH ×3 (13:45→13:55)
== END 2022-01-17 13:58 | disposition home or self-care (01) ==
LOC: FER 12:30
PROC: 3E0F7GC Introduction of Other Therapeutic Substance into Respiratory Tract, Via Natural or Artificial Opening (ICD-10-PCS; principal; 2022-01-17)
DX: R05.9 Cough, unspecified (principal)
CPT/HCPCS: 0241U-QW; 71046-TC-FY; 99284-25

== ENCOUNTER 2022-01-25 11:10 | Emergency (ER) | payer OTHER ==
[2022-01-25 11:28] VITALS: BP 113/75; PULSE 87; RESP 16; TEMP 99.4; BMI 25.7
[2022-01-25] MEDS ORDERED: CYCLOBENZAPRINE HCL 10 MG TABLET (FP) PO ONE (11:48)
[2022-01-25] MEDS ORDERED: ACETAMINOPHEN 500 MG TABLET (FP) PO ONE (11:48)
[2022-01-25 11:50] LABS: HCG,QUALITATIVE URINE Negative
[2022-01-25] MEDS ORDERED: ACETAMINOPHEN 500 MG TABLET (FP) ONE (11:52)
[2022-01-25] MEDS ORDERED: CYCLOBENZAPRINE HCL 5 MG TABLET ONE (11:53)
[2022-01-25 11:57] LABS: EPITHELIAL CELLS MANY /hpf
== END 2022-01-25 13:15 | disposition home or self-care (01) ==
LOC: FER 11:10
DX: S39.012A Strain of muscle, fascia and tendon of lower back, initial encounter (principal); V49.40XA Driver injured in collision with unspecified motor vehicles in traffic accident, initial encounter
CPT/HCPCS: 81003; 81015; 84703; 99283-25